=== PATIENT | female | born 1990 | race Two or more races ===

== ENCOUNTER 2024-02-12 19:42 | Emergency (ER) | payer BC ==
[2024-02-12 20:02] LABS: BASOPHILS PERCENT AUTO 0.2 % (0.0-1.0); EOSINOPHILS ABSOLUTE AUTO 0.3 K/mm3 (0.0-0.4); EOSINOPHILS PERCENT AUTO 2.4 % (0.0-6.0); HEMATOCRIT 42.6 % (37.0-47.0); HEMOGLOBIN 14.2 gm/dl (12.0-16.0); IMMATURE GRAN ABSOLUTE AUTO 0.02 K/mm3 (0.00-0.05); IMMATURE GRAN PERCENT AUTO 0.2 % (0.0-0.4); LYMPHOCYTES ABSOLUTE AUTO 4.1 K/mm3 (1.0-4.8); LYMPHOCYTES PERCENT AUTO 35.8 % (24.0-44.0); MEAN CORPUSCULAR HEMOGLOBIN 28.5 pg (28.0-32.0); MEAN CORPUSCULAR HGB CONC 33.3 g/dl (32.0-36.0); MEAN CORPUSCULAR VOLUME 85.4 fl (83.0-99.0); MEAN PLATELET VOLUME 9.5 fl (9.4-12.3); MONOCYTES ABSOLUTE AUTO 0.7 K/mm3 (0.0-0.8); MONOCYTES PERCENT AUTO 5.7 % (0.0-8.0); NEUTROPHILS ABSOLUTE AUTO 6.3 K/mm3 (1.8-7.7); NEUTROPHILS PERCENT AUTO 55.7 % (41.0-71.0); PLATELET COUNT,PLT 353 K/mm3 (150-400); RED BLOOD CELL COUNT 4.99 M/mm3 (4.10-5.30); WHITE BLOOD CELL COUNT,WBC 11.35 K/mm3 (3.9-11.3)
[2024-02-12] MEDS: Sodium Chloride 0.9% 10 ML Syringe FLUSH PRN (20:04)
[2024-02-12] MEDS: Ondansetron 4 MG/2 ML SDV IVPUSH ONE (20:04)
[2024-02-12 20:21] LABS: ALBUMIN 3.9 g/dl (3.4-5.0); ANION GAP 10.4 (5-15); BILIRUBIN TOTAL 0.5 mg/dL (0.2-1.0); BUN/CREATININE RATIO 11.1 (14-18); C-REACTIVE PROTEIN 0.2 mg/dL (<0.30); CREATININE 0.9 mg/dL (0.55-1.02); EST CRCL DRUG DOSING (CG) 64.46 mL/min; MAGNESIUM 2.1 mg/dL (1.8-2.4); POTASSIUM,K 3.4 mEq/L (3.5-5.1)
[2024-02-12 20:29] LABS: APPEARANCE,URINE CLEAR (Clear); BILIRUBIN,URINE NEGATIVE (Negative); COLOR,URINE LIGHT YELLOW (Yellow); GLUCOSE,URINE NEGATIVE (Negative); KETONES,URINE NEGATIVE (Negative); LEUKOCYTE ESTERASE,URINE NEGATIVE (Negative); NITRITE,URINE NEGATIVE (Negative); OCCULT BLOOD,URINE TRACE-LYSED (Negative); PROTEIN,URINE NEGATIVE (Negative); UROBILINOGEN,URINE 0.2 (0.2-1.0)
[2024-02-12] MEDS: Pantoprazole 40 MG Vial IVPUSH ONE (20:30)
[2024-02-12 20:36] LABS: BACTERIA,URINE RARE /hpf (FEW); MUCUS,URINE RARE /hpf (FEW); RBC,URINE 0-5 /hpf (0-5); SQUAMOUS EPITHELIAL CELLS,UR 0-5 /hpf (0-5); WBC,URINE 0-5 /hpf (0-5)
[2024-02-12] MEDS: Sucralfate Suspension 1 GM/10 ML Cup PO ONE (22:03)
[2024-02-12] MEDS: Iopamidol 612 MG/ML 100 ML Bottle IVPUSH ONE (22:58)
[2024-02-12] MEDS: Sodium Chloride 0.9% 10 ML Syringe FLUSH ONE (22:58)
== END 2024-02-12 23:07 | disposition home or self-care (01) ==
LOC: JD.ED 19:42
DX: K29.00 Acute gastritis without bleeding (principal); Z86.16 Personal history of COVID-19
CPT/HCPCS: 36415; 74177; 80053; 81001; 83735; 84703; 85025; 86140; 96374; 96375; 99284; A9270; J2405; J2470; J3490; Q9967; 99283